=== PATIENT | male | born 2000 | race Caucasian/White ===

== ENCOUNTER 2024-01-21 22:16 | Emergency (ER) | payer OTHER ==
[~2024-01-21] VITALS: Ht 172.7 cm; Wt 61.4 kg
[2024-01-21] MEDS ORDERED: tiZANidine 4 MG TABLET PO ONE (22:45)
[2024-01-21] MEDS ORDERED: Ibuprofen 800 MG TAB PO ONE (22:45)
[2024-01-21] MEDS ORDERED: TIZANIDINE HYDRO4 MG PO (23:48)
[2024-01-22 00:01] VITALS: BP 102/61
== END 2024-01-22 00:02 | disposition home or self-care (01) ==
LOC: ED 22:16
DX: S99.921A Unspecified injury of right foot, initial encounter (principal); X58.XXXA Exposure to other specified factors, initial encounter
CPT/HCPCS: L4386